=== PATIENT | female | born 1990 | race Caucasian/White ===

== ENCOUNTER 2016-12-11 17:46 | Emergency (ER) | payer OTHER ==
[~2016-12-11 17:46] MED LIST: /GUAIMAX PO; ALBU17IN INH; BIRTH CONTROL PO; CELE10TA PO; IBUP100SUS PO; IBUP200T2 PO; KEPP500T4 PO; ZITH500T PO
[2016-12-11] MEDS ORDERED: DOXYCYCLINE HYCLATE 100 MG TAB As Ordered ONE (20:20)
[2016-12-11] MEDS ORDERED: BENZONATATE 100 MG CAP As Ordered ONE (20:20)
--- NOTE | 2016-12-11 20:29 | EDDOCDS ---
Physician Documentation [facility] Name: Desiree Ram Age: 26 yrs Sex: Female : 1990 Arrival Date: 12/11/2016 Time: 17:46 Bed TR5 Private MD: Other - Complete Info On Cds Disposition: 12/11/16 20:18 Discharged to Home/Self Care. Impression: Acute bronchitis, Acute sinusitis. - Condition is Stable. - Discharge Instructions: Acute Bronchitis, Sinusitis, Adult. - Prescriptions for Doxycycline Hyclate 100 mg Oral Tablet - take 1 tablet by ORAL route every 12 hours; 20 tablet. benzonatate 200 mg Oral Capsule - take 1 capsule by ORAL route 3 times per day As needed; 30 capsule. - Medication Reconciliation, Local Pharmacy Hours form. - Follow up: Private Physician; When: 2 - 3 days; Reason: Recheck today's complaints, Continuance of care. - Problem is new. - Symptoms have improved. - Notes: USE MEDICATION INSTRUCTED, FOLLOW UP WITH YOUR DOCTOR IN 2-3 DAYS, RETURN TO THE ER IF THE SYMPTOMS WORSEN OR BECOME CONCERNING Historical: - Allergies: PENICILLINS (Anaphylaxis); - Home Meds: 1. none - PMHx: none; - PSHx: Tonsillectomy; Laparoscopy; - Social history: Smoking status: Patient states was never smoker of tobacco. No barriers to communication noted, The patient speaks fluent Welsh. - Family history: Not pertinent. - : The pt / caregiver states he / she is not on anticoagulants. Home medication list is obtained from the patient. - Exposure Risk Screening:: None identified. 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 9 in. (175.26 cm); Pain 8/10; 20:25 BP 125 / 75; Pulse 91; Resp 18; Temp 98.4(TE); Pulse Ox 98% on R/A; jo3 17:48 Body Mass Index 29.53 (90.72 kg, 175.26 cm) bnb MDM: 19:08 Strep Screen, Nursing ordered. ck7 19:08 Obtain sample by nasopharyngeal swab ordered. ck7 19:09 -Influenza A&B Rapid Antigen - Nose Ordered. EDMS 19:10 Chest, 2 View (pa\E\lat) Ordered. EDMS 19:16 GATS (NEGATIVE STREP SCREEN) Ordered. EDMS 20:03 -Influenza A&B Rapid Antigen - Nose Reviewed. ck7 20:17 Doxycycline 100 mg PO once ordered. ck7 20:17 Tessalon 200 mg PO once ordered. ck7 Administered Medications: 20:25 Drug: Doxycycline 100 mg [doxycycline hyclate 100 mg tablet (1 tabs)] Route: PO; jo3 20:25 Drug: Tessalon 200 mg Route: PO; jo3 Signatures: Dispatcher [employer] EDMS Malia Villela,RN RN ck1 Phyllis Guan,RN RN jo3 Rachael AnnaRN RN rs3 Franko Estrada, RPA-C RPA-Cck7 MTDD
--- NOTE | 2016-12-11 20:29 | EDDOCDS ---
Nurse's Notes [facility] Name: Desiree Ram Age: 26 yrs Sex: Female : 1990 Arrival Date: 12/11/2016 Time: 17:46 Bed TR5 Private MD: Other - Complete Info On Cds Diagnosis: Acute bronchitis;Acute sinusitis Presentation: 12/11 17:50 Presenting complaint: Patient states: chest congestion, head cold, ear fullness for 5 rs3 days. no relief with OTC cough/cold med. Adult Sepsis Screening: The patient does not have new or worsening altered mentation. Patient's respiratory rate is less than 22. Systolic blood pressure is greater than 100. Patient has a qSOFA score of 0- Negative Sepsis Screen. Suicide/Homicide risk assessment- the patient denies having any suicidal and/or homicidal ideations and does not present with any other emotional, behavioral or mental health complaints. Status: Patient is not a director of medical services or dependent. Transition of care: patient was not received from another setting of care. 17:50 Acuity: NANO Level 4 rs3 17:50 Method Of Arrival: Walkin/Carried/Asstd rs3 Triage Assessment: 17:52 General: Appears in no apparent distress. Pain: Denies pain. HIV screening NA for this rs3 visit Offered previously. Respiratory: Onset: The symptoms/episode began/occurred gradually. 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 none - PMHx: none; - PSHx: Tonsillectomy; Laparoscopy; - Social history: Smoking status: Patient states was never smoker of tobacco. No barriers to communication noted, The patient speaks fluent American. - Family history: Not pertinent. - : The pt / caregiver states he / she is not on anticoagulants. Home medication list is obtained from the patient. - Exposure Risk Screening:: None identified. Screenin:15 Screening information is obtained from the patient. Fall risk: No risks identified. ck1 Assistance ADL's: requires no assistance with activities of daily living. Abuse/DV Screen: The patient / caregiver reports he/she is: not in a situation that causes fear, pain or injury. Nutritional screening: No deficits noted. Advance Directives: Currently, there is no health care proxy. home support is adequate. Assessment: 19:16 General: Appears in no apparent distress, comfortable, Behavior is appropriate for age, ck1 cooperative. Pain: Location: head and chest Pain currently is 5 out of 10 on a pain scale. Cardiovascular: Rhythm is regular. Respiratory: Airway is patent Respiratory effort is unlabored, Breath sounds are clear bilaterally. Derm: Skin is intact, is healthy with good turgor, Skin is pink, warm & dry. 20:25 Reassessment: Patient appears in no apparent distress at this time. Patient states jo3 feeling better. Neurological: Level of Consciousness is awake, alert, Oriented to person, place, time. Respiratory: Airway is patent Respiratory effort is even, unlabored. Vital Signs: 17:48 BP 114 / 75 RA Sitting (auto/lg); Pulse 101; Resp 16; Temp 96.5(O); Pulse Ox 100% on bnb R/A; Weight 90.72 kg; Height 5 ft. 9 in. (175.26 cm); Pain 8/10; 20:25 BP 125 / 75; Pulse 91; Resp 18; Temp 98.4(TE); Pulse Ox 98% on R/A; jo3 17:48 Body Mass Index 29.53 (90.72 kg, 175.26 cm) bnb Vitals: 17:48 Log In Time: December 11, 2016 at 17:48. bnb 19:15 Strep Screen is obtained and tested: Negative, a GATSNEG culture is ordered in [facility] ck1 and sent. ED Course: 17:47 Patient visited by Ruby Arreaga PCA. bnb 17:47 Patient moved to Waiting bnb 17:48 Other - Complete Info On Cds is Private Physician. bnb 17:50 Patient moved to Pre RCE bnb 17:52 Triage Initiated rs3 18:47 Patient moved to Triage 1 ck1 18:50 Patient visited by Francia Spears PCA. jb5 18:56 Franko Estrada RPA-C is PHCP. ck7 18:56 Anam Dias DO is Attending Physician. ck7 18:57 Patient visited by Franko Estrada RPA-C. ck7 19:14 -Influenza A&B Rapid Antigen - Nose Sent. mdr 19:15 Patient moved to TR3 mdr 19:16 The patient / caregiver is instructed regarding the plan of care and ED course. ck1 19:17 GATS (NEGATIVE STREP SCREEN) Sent. ck1 19:21 Patient moved to TR1 ck1 19:32 Patient visited by Malia Villela RN. ck1 20:03 Patient visited by Franko Estrada RPA-C. ck7 20:19 Patient moved to PR / ck1 20:25 No IV's were initiated during this patient's visit. No procedures done that require jo3 assistance. 20:28 Patient moved to TR5 mdr Administered Medications: 20:25 Drug: Doxycycline 100 mg [doxycycline hyclate 100 mg tablet (1 tabs)] Route: PO; jo3 20:25 Drug: Tessalon 200 mg Route: PO; jo3 Order Results: Lab Order: -Influenza A&B Rapid Antigen - Nose; SPEC'M 16 19:13 Test: INFLUENZA A RAPID SCR by ICA; Value: INFLUENZA A RESULTS NEGATIVE; Status: F Test: INFLUENZA A RAPID SCR by ICA; Value: Comments:; Status: F Test: INFLUENZA B RAPID SCR by ICA; Value: INFLUENZA B RESULTS NEGATIVE; Status: F Test Note: ; The Influenza test is a direct rapid immunoassay for the qualitative detection of Influenza viral antigen. Cell culture (Viral Culture) testing should be considered to confirm NEGATIVE results and to assist in detecting other viruses that can provide similar clinical symptoms. Please contact the lab within 24 hours ([phone]) if confirmatory testing is desired. Outcome: 20:18 Discharge ordered by Provider. ck7 20:25 Discharge Assessment: Patient awake, alert and oriented x 3. No cognitive and/or jo3 functional deficits noted. Patient verbalized understanding of disposition instructions. patient administered narcotics - no. The following High Risk Discharge criteria are identified: None. Discharged to home ambulatory. Condition: stable Condition: improved. Discharge instructions given to patient, Instructed on discharge instructions, follow up and referral plans. medication usage, Demonstrated understanding of instructions, medications, Pt was receptive of discharge instructions/ teaching. Prescriptions given X 2. No special radiology studies were completed. Property sent home with patient. 20:28 Patient left the ED. jo3 Signatures: Malia Villela,RN RN ck1 Francia Spears, PRINTING MACHINE OPERATOR PRINTING MACHINE OPERATOR jb5 Phyllis Guan RN RN jo3 Rachael Anna RN RN rs3 Franko Estrada, RPA-C RPA-Cck7 Gurwinder Wooten, PRINTING MACHINE OPERATOR PRINTING MACHINE OPERATOR mdr Ruby Arreaga, PRINTING MACHINE OPERATOR PRINTING MACHINE OPERATOR bnb MTDD
--- NOTE | 2016-12-12 09:58 | REP ---
Clinical: Acute cough . Comparison: 10/08/2014 . Technique: PA and lateral. Findings: The mediastinum and cardiac silhouette are normal. The lung barrett are clear and without acute consolidation, effusion, or pneumothorax. The skeletal structures are intact and normal. Impression: 1. No acute cardiopulmonary process. Signed by Benja Isabel MD 12/12/2016 09:50 A
--- NOTE | 2016-12-13 21:29 | EDDOCDS ---
Nurse's Notes [facility] Name: Desiree Ram Age: 26 yrs Sex: Female : 1990 Arrival Date: 12/11/2016 Time: 17:46 Bed TR5 Private MD: Other - Complete Info On Cds Diagnosis: Acute bronchitis;Acute sinusitis Presentation: 12/11 17:50 Presenting complaint: Patient states: chest congestion, head cold, ear fullness for 5 rs3 days. no relief with OTC cough/cold med. Adult Sepsis Screening: The patient does not have new or worsening altered mentation. Patient's respiratory rate is less than 22. Systolic blood pressure is greater than 100. Patient has a qSOFA score of 0- Negative Sepsis Screen. Suicide/Homicide risk assessment- the patient denies having any suicidal and/or homicidal ideations and does not present with any other emotional, behavioral or mental health complaints. Status: Patient is not a social services manager or dependent. Transition of care: patient was not received from another setting of care. 17:50 Acuity: NANO Level 4 rs3 17:50 Method Of Arrival: Walkin/Carried/Asstd rs3 Triage Assessment: 17:52 General: Appears in no apparent distress. Pain: Denies pain. HIV screening NA for this rs3 visit Offered previously. Respiratory: Onset: The symptoms/episode began/occurred gradually. 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 none - PMHx: none; - PSHx: Tonsillectomy; Laparoscopy; - Social history: Smoking status: Patient states was never smoker of tobacco. No barriers to communication noted, The patient speaks fluent Estonian. - Family history: Not pertinent. - : The pt / caregiver states he / she is not on anticoagulants. Home medication list is obtained from the patient. - Exposure Risk Screening:: None identified. Screenin:15 Screening information is obtained from the patient. Fall risk: No risks identified. ck1 Assistance ADL's: requires no assistance with activities of daily living. Abuse/DV Screen: The patient / caregiver reports he/she is: not in a situation that causes fear, pain or injury. Nutritional screening: No deficits noted. Advance Directives: Currently, there is no health care proxy. home support is adequate. Assessment: 19:16 General: Appears in no apparent distress, comfortable, Behavior is appropriate for age, ck1 cooperative. Pain: Location: head and chest Pain currently is 5 out of 10 on a pain scale. Cardiovascular: Rhythm is regular. Respiratory: Airway is patent Respiratory effort is unlabored, Breath sounds are clear bilaterally. Derm: Skin is intact, is healthy with good turgor, Skin is pink, warm & dry. 20:25 Reassessment: Patient appears in no apparent distress at this time. Patient states jo3 feeling better. Neurological: Level of Consciousness is awake, alert, Oriented to person, place, time. Respiratory: Airway is patent Respiratory effort is even, unlabored. Vital Signs: 17:48 BP 114 / 75 RA Sitting (auto/lg); Pulse 101; Resp 16; Temp 96.5(O); Pulse Ox 100% on bnb R/A; Weight 90.72 kg; Height 5 ft. 9 in. (175.26 cm); Pain 8/10; 20:25 BP 125 / 75; Pulse 91; Resp 18; Temp 98.4(TE); Pulse Ox 98% on R/A; jo3 17:48 Body Mass Index 29.53 (90.72 kg, 175.26 cm) bnb Vitals: 17:48 Log In Time: December 11, 2016 at 17:48. bnb 19:15 Strep Screen is obtained and tested: Negative, a GATSNEG culture is ordered in [facility] ck1 and sent. ED Course: 17:47 Patient visited by Ruby Arreaga PCA. bnb 17:47 Patient moved to Waiting bnb 17:48 Other - Complete Info On Cds is Private Physician. bnb 17:50 Patient moved to Pre RCE bnb 17:52 Triage Initiated rs3 18:47 Patient moved to Triage 1 ck1 18:50 Patient visited by Francia Spears PCA. jb5 18:56 Franko Estrada RPA-C is PHCP. ck7 18:56 Anam Dias DO is Attending Physician. ck7 18:57 Patient visited by Franko Estrada RPA-C. ck7 19:14 -Influenza A&B Rapid Antigen - Nose Sent. mdr 19:15 Patient moved to TR3 mdr 19:16 The patient / caregiver is instructed regarding the plan of care and ED course. ck 19:17 GATS (NEGATIVE STREP SCREEN) Sent. ck1 19:21 Patient moved to TR1 ck1 19:32 Patient visited by Malia Villela RN. ck1 20:03 Patient visited by Franko Estrada RPA-C. ck7 20:19 Patient moved to PR ck1 20:25 No IV's were initiated during this patient's visit. No procedures done that require jo3 assistance. 20:28 [facility] 10[facility] T-Sheet-- Draft Copy was scanned into [employer] and attached to record. 10:27 Chest, 2 View (pa\E\lat) Returned. EDMS Administered Medications: 12/11 20:25 Drug: Doxycycline 100 mg [doxycycline hyclate 100 mg tablet (1 tabs)] Route: PO; jo3 20:25 Drug: Tessalon 200 mg Route: PO; jo3 Order Results: Lab Order: -Influenza A&B Rapid Antigen - Nose; SPEC'M 12/11/16 19:13 Test: INFLUENZA A RAPID SCR by ICA; Value: INFLUENZA A RESULTS NEGATIVE; Status: F Test: INFLUENZA A RAPID SCR by ICA; Value: Comments:; Status: F Test: INFLUENZA B RAPID SCR by ICA; Value: INFLUENZA B RESULTS NEGATIVE; Status: F Test Note: ; The Influenza test is a direct rapid immunoassay for the qualitative detection of Influenza viral antigen. Cell culture (Viral Culture) testing should be considered to confirm NEGATIVE results and to assist in detecting other viruses that can provide similar clinical symptoms. Please contact the lab within 24 hours ([phone]) if confirmatory testing is desired. Lab Order: GATS (NEGATIVE STREP SCREEN); SPEC'M 12/11/16 19:13 Test: GATS CULTURE (NEG STREP SCR); Value: GATS RESULT NEGATIVE FOR STREP PYOGENES (GROUP A); Status: F Test: GATS CULTURE (NEG STREP SCR); Value: <EXTERNAL COMMENT eCWMed> FULL REPORT IN LAB NOTES (eCW and Medent).; Status: F Radiology Order: Chest, 2 View (pa\E\lat) Test: Chest, 2 View (pa\E\lat) REASON FOR EXAMINATION: Cough; Clinical: Acute cough .; ; Comparison: 10/08/2014 .; ; Technique: PA and lateral.; ; Findings:; The mediastinum and cardiac silhouette are normal. The lung barrett are clear and; without acute consolidation, effusion, or pneumothorax. The skeletal structures; are intact and normal.; ; Impression:; 1. No acute cardiopulmonary process.; ; ; Signed by; Benja Isabel MD 12/12/2016 09:50 A; Outcome: 20:18 Discharge ordered by Provider. ck7 20:25 Discharge Assessment: Patient awake, alert and oriented x 3. No cognitive and/or jo3 functional deficits noted. Patient verbalized understanding of disposition instructions. patient administered narcotics - no. The following High Risk Discharge criteria are identified: None. Discharged to home ambulatory. Condition: stable Condition: improved. Discharge instructions given to patient, Instructed on discharge instructions, follow up and referral plans. medication usage, Demonstrated understanding of instructions, medications, Pt was receptive of discharge instructions/ teaching. Prescriptions given X 2. No special radiology studies were completed. Property sent home with patient. 20:28 Patient left the ED. jo3 Signatures: Dispatcher [employer] EDMS Bina Hess, Reg Reg gb Malia Villela,RN RN ck1 Francia Spears, STAKING PRESS OPERATOR STAKING PRESS OPERATOR jb5 Phyllis Guan,RN RN jo3 Rachael Anna,RN RN rs3 Franko Estrada, RPA-C RPA-Cck7 Gurwinder Wooten, STAKING PRESS OPERATOR STAKING PRESS OPERATOR mdr Ruby Arreaga, STAKING PRESS OPERATOR STAKING PRESS OPERATOR bnb Chart Complete MTDD
--- NOTE | 2016-12-13 21:29 | EDDOCDS ---
Physician Documentation [facility] Name: Desiree Ram Age: 26 yrs Sex: Female : 1990 Arrival Date: 12/11/2016 Time: 17:46 Bed TR5 Private MD: Other - Complete Info On Cds Disposition: 12/11/16 20:18 Discharged to Home/Self Care. Impression: Acute bronchitis, Acute sinusitis. - Condition is Stable. - Discharge Instructions: Acute Bronchitis, Sinusitis, Adult. - Prescriptions for Doxycycline Hyclate 100 mg Oral Tablet - take 1 tablet by ORAL route every 12 hours; 20 tablet. benzonatate 200 mg Oral Capsule - take 1 capsule by ORAL route 3 times per day As needed; 30 capsule. - Medication Reconciliation, Local Pharmacy Hours form. - Follow up: Private Physician; When: 2 - 3 days; Reason: Recheck today's complaints, Continuance of care. - Problem is new. - Symptoms have improved. - Notes: USE MEDICATION INSTRUCTED, FOLLOW UP WITH YOUR DOCTOR IN 2-3 DAYS, RETURN TO THE ER IF THE SYMPTOMS WORSEN OR BECOME CONCERNING Historical: - Allergies: PENICILLINS (Anaphylaxis); - Home Meds: 1. none - PMHx: none; - PSHx: Tonsillectomy; Laparoscopy; - Social history: Smoking status: Patient states was never smoker of tobacco. No barriers to communication noted, The patient speaks fluent Polish. - Family history: Not pertinent. - : The pt / caregiver states he / she is not on anticoagulants. Home medication list is obtained from the patient. - Exposure Risk Screening:: None identified. 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 9 in. (175.26 cm); Pain 8/10; 20:25 BP 125 / 75; Pulse 91; Resp 18; Temp 98.4(TE); Pulse Ox 98% on R/A; jo3 17:48 Body Mass Index 29.53 (90.72 kg, 175.26 cm) bnb MDM: 19:08 Strep Screen, Nursing ordered. ck7 19:08 Obtain sample by nasopharyngeal swab ordered. ck7 19:09 -Influenza A&B Rapid Antigen - Nose Ordered. EDMS 19:10 Chest, 2 View (pa\E\lat) Ordered. EDMS 19:16 GATS (NEGATIVE STREP SCREEN) Ordered. EDMS 20:03 -Influenza A&B Rapid Antigen - Nose Reviewed. ck7 20:17 Doxycycline 100 mg PO once ordered. ck7 20:17 Tessalon 200 mg PO once ordered. ck7 12/12 10:19 T-Sheet-- Draft Copy was scanned into [employer] and attached to record. gb Administered Medications: 12/11 20:25 Drug: Doxycycline 100 mg [doxycycline hyclate 100 mg tablet (1 tabs)] Route: PO; jo3 20:25 Drug: Tessalon 200 mg Route: PO; jo3 Signatures: Dispatcher [employer] EDMS Bina Hess, Reg Reg gb Malia Villela,RN RN ck1 Phyllis GuanRN RN jo3 Rachael Anna,RN RN rs3 Franko Estrada, RPA-C RPA-Cck7 The chart was reviewed and I authenticate all verbal orders and agree with the evaluation and treatment provided.Attachments: 12/12 10:19 T-Sheet-- Draft Copy gb Chart Complete MTDD
--- NOTE | 2016-12-13 21:29 | EDDOCDS ---
Physician Documentation [facility] Name: Desiree Ram Age: 26 yrs Sex: Female : 1990 Arrival Date: 12/11/2016 Time: 17:46 Bed TR5 Private MD: Other - Complete Info On Cds Disposition: 12/11/16 20:18 Discharged to Home/Self Care. Impression: Acute bronchitis, Acute sinusitis. - Condition is Stable. - Discharge Instructions: Acute Bronchitis, Sinusitis, Adult. - Prescriptions for Doxycycline Hyclate 100 mg Oral Tablet - take 1 tablet by ORAL route every 12 hours; 20 tablet. benzonatate 200 mg Oral Capsule - take 1 capsule by ORAL route 3 times per day As needed; 30 capsule. - Medication Reconciliation, Local Pharmacy Hours form. - Follow up: Private Physician; When: 2 - 3 days; Reason: Recheck today's complaints, Continuance of care. - Problem is new. - Symptoms have improved. - Notes: USE MEDICATION INSTRUCTED, FOLLOW UP WITH YOUR DOCTOR IN 2-3 DAYS, RETURN TO THE ER IF THE SYMPTOMS WORSEN OR BECOME CONCERNING Historical: - Allergies: PENICILLINS (Anaphylaxis); - Home Meds: 1. none - PMHx: none; - PSHx: Tonsillectomy; Laparoscopy; - Social history: Smoking status: Patient states was never smoker of tobacco. No barriers to communication noted, The patient speaks fluent Macedonian. - Family history: Not pertinent. - : The pt / caregiver states he / she is not on anticoagulants. Home medication list is obtained from the patient. - Exposure Risk Screening:: None identified. 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 9 in. (175.26 cm); Pain 8/10; 20:25 BP 125 / 75; Pulse 91; Resp 18; Temp 98.4(TE); Pulse Ox 98% on R/A; jo3 17:48 Body Mass Index 29.53 (90.72 kg, 175.26 cm) bnb MDM: 19:08 Strep Screen, Nursing ordered. ck7 19:08 Obtain sample by nasopharyngeal swab ordered. ck7 19:09 -Influenza A&B Rapid Antigen - Nose Ordered. EDMS 19:10 Chest, 2 View (pa\E\lat) Ordered. EDMS 19:16 GATS (NEGATIVE STREP SCREEN) Ordered. EDMS 20:03 -Influenza A&B Rapid Antigen - Nose Reviewed. ck7 20:17 Doxycycline 100 mg PO once ordered. ck7 20:17 Tessalon 200 mg PO once ordered. ck7 12/12 10:19 T-Sheet-- Draft Copy was scanned into [employer] and attached to record. gb Administered Medications: 12/11 20:25 Drug: Doxycycline 100 mg [doxycycline hyclate 100 mg tablet (1 tabs)] Route: PO; jo3 20:25 Drug: Tessalon 200 mg Route: PO; jo3 Signatures: Dispatcher [employer] EDMS Bina Hess, Reg Reg gb Malia Villela,RN RN ck1 Phyllis GuanRN RN jo3 Rachael Anna,RN RN rs3 Franko Estrada, RPA-C RPA-Cck7 The chart was reviewed and I authenticate all verbal orders and agree with the evaluation and treatment provided.Attachments: 12/12 10:19 T-Sheet-- Draft Copy gb Chart Complete MTDD
== END 2016-12-11 20:28 | disposition home or self-care (01) ==
LOC: M ED 17:46
DX: J01.90 Acute sinusitis, unspecified (principal); J20.9 Acute bronchitis, unspecified; Z88.0 Allergy status to penicillin

== ENCOUNTER → 2017-04-09 | Outpatient (CLI) | payer OTHER ==
[2017-04-09 17:30] LABS: BASO % 0.5 % (0.0-1.0); EOS # 0.1 K/mm3 (0.0-0.50); EOS % 2.2 % (0.0-3.0); LARGE UNSTAINED CELL # 0.1 K/mm3 (0.0-0.4); LARGE UNSTAINED CELL % 1.6 % (0.0-4.0); LYMPH # 0.9 K/mm3 (1.5-6.5); LYMPH % 23.8 % (24.0-44.0); MEAN CORPUSCULAR HEMOGLOBIN 31.9 pg (27.0-33.0); MEAN CORPUSCULAR HGB CONC 33.8 g/dl (32.0-36.5); MEAN CORPUSCULAR VOLUME 94.6 fl (80.0-96.0); MONO # 0.2 K/mm3 (0.0-0.8); MONO % 5.8 % (0.0-5.0); NEUTROPHILS # 2.6 K/mm3 (1.8-7.7); PLATELET COUNT, AUTOMATED 156 k/mm3 (150-450); RED CELL DISTRIBUTION WIDTH 12.3 % (11.5-14.5); WHITE BLOOD COUNT 3.9 K/mm3 (4.0-10.0)
[2017-04-09 17:46] LABS: ALBUMIN 4.1 GM/DL (3.2-5.2); ALBUMIN/GLOBULIN RATIO 1.46 (1.00-1.93); ALKALINE PHOSPHATASE 89 U/L (45-117); ALT/SGPT 35 U/L (12-78); ANION GAP 4 MEQ/L (8-16); AST/SGOT 20 U/L (15-37); BILIRUBIN,TOTAL 0.5 MG/DL (0.2-1.0); BLOOD UREA NITROGEN 13 MG/DL (7-18); CALCIUM LEVEL 8.6 MG/DL (8.5-10.1); CARBON DIOXIDE LEVEL 30 MEQ/L (21-32); CHLORIDE LEVEL 103 MEQ/L (98-107); CHOLESTEROL LEVEL 153 MG/DL (<200); CREATININE FOR GFR 0.69 MG/DL (0.55-1.02); FREE T4 0.97 NG/DL (0.76-1.46); GLOMERULAR FILTRATION RATE > 60.0 (>60); GLUCOSE, FASTING 86 MG/DL (70-105); POTASSIUM SERUM 4.2 MEQ/L (3.5-5.1); SODIUM LEVEL 137 MEQ/L (136-145); TOTAL PROTEIN 6.9 GM/DL (6.4-8.2); TRIGLYCERIDES LEVEL 66 MG/DL (<150)
== END ==
LOC: M WUC 11:02
PROVIDERS: ATTEND Physician Assistant
DX: Z00.00 Encounter for general adult medical examination without abnormal findings (principal)

== ENCOUNTER 2017-05-01 19:11 | Emergency (ER) | payer OTHER ==
[~2017-05-01] VITALS: Ht 175.3 cm; Wt 100.0 kg
[2017-05-01 19:35] VITALS: BP 103/55
[2017-05-01] MEDS ORDERED: levETIRAcetam 250MG TABLET (KEPPRA) PO ONE (20:00)
[2017-05-01] MEDS ORDERED: MORPHINE 2 MG/ML 1ML SYRINGE IV ONE (20:15)
[2017-05-01 20:21] LABS: ANION GAP 7 MEQ/L (8-16); BLOOD UREA NITROGEN 15 MG/DL (7-18); CALCIUM LEVEL 8.7 MG/DL (8.5-10.1); CARBON DIOXIDE LEVEL 26 MEQ/L (21-32); CHLORIDE LEVEL 109 MEQ/L (98-107); CREATININE FOR GFR 0.87 MG/DL (0.55-1.02); GLOMERULAR FILTRATION RATE > 60.0 (>60); GLUCOSE, FASTING 103 MG/DL (70-105); POTASSIUM SERUM 3.6 MEQ/L (3.5-5.1); SODIUM LEVEL 142 MEQ/L (136-145)
--- NOTE | 2017-05-01 20:25 | REP ---
Clinical: Trauma . Comparison: 04/30/2017 . Findings: The ventricles, sulci, and cisterns are normal in position and appearance. Cheek-white differentiation is maintained. No acute intracranial hemorrhage, mass/mass effect, pathology or trauma/injury. No evidence for acute infarction. No extra-axial fluid collection. Calvarium is intact. Paranasal sinuses and mastoid air cells are clear. Impression: Normal noncontrast head CT. No evidence for acute intracranial pathology or trauma/injury. Signed by Benja Isabel MD 05/01/2017 08:15 P
[2017-05-01 22:48] LABS: METHADONE URINE NEGATIVE (NEGATIVE)
[2017-05-01] MEDS ORDERED: KEPP1TAB PO (23:03)
== END 2017-05-01 23:15 | disposition home or self-care (01) ==
LOC: EDBD 19:11 → M ED 19:11
DX: G40.909 Epilepsy, unspecified, not intractable, without status epilepticus (principal); Z88.0 Allergy status to penicillin

== ENCOUNTER 2018-12-25 20:20 | Emergency (ER) | payer OTHER, SELFPAY ==
[~2018-12-25] VITALS: Ht 175.3 cm; Wt 118.2 kg
[~2018-12-25 20:20] MED LIST changes: +KEPP1TAB PO
[2018-12-25] MEDS ORDERED: TETRACAINE 0.5% OPHTH SOLN 4ML OS ONE (20:45)
[2018-12-25] MEDS ORDERED: FLUORESCEIN OPHTH 1 MG STRIP OS ONE (21:45)
[2018-12-25] MEDS ORDERED: FLUORESCEIN OPHTH 1 MG STRIP As Ordered ONE (21:45)
[2018-12-25] MEDS ORDERED: IBUPROFEN 800 MG TAB PO ONE (22:00)
[2018-12-25] MEDS ORDERED: CYCLOPENTOLATE 1% OPHTH SOLN 2 ML BTL OS ONE (22:00)
[2018-12-25] MEDS ORDERED: ERYTOIN8 OP (22:49)
[2018-12-25 22:57] VITALS: BP 141/80
[2018-12-25] MEDS ORDERED: ERYTHROMYCIN OPHTH OINT OS ONE (23:00)
== END 2018-12-25 23:18 | disposition home or self-care (01) ==
LOC: M ED 20:20
DX: S05.02XA Injury of conjunctiva and corneal abrasion without foreign body, left eye, initial encounter (principal); Z97.3 Presence of spectacles and contact lenses; X58.XXXA Exposure to other specified factors, initial encounter; Y92.098 Other place in other non-institutional residence as the place of occurrence of the external cause; Z88.0 Allergy status to penicillin

== ENCOUNTER 2019-01-03 12:47 | Emergency (ER) | payer SELFPAY ==
[~2019-01-03] VITALS: Ht 175.3 cm; Wt 127.3 kg
[~2019-01-03 12:47] MED LIST changes: +ERYTOIN8 OP
[2019-01-03 13:48] LABS: BASO % 0.1 % (0.0-1.0); EOS % 0.3 % (0.0-3.0); HEMATOCRIT 42.4 % (36.0-47.0); HEMOGLOBIN 14.7 g/dl (12.0-15.5); LYMPH # 0.4 10^3/uL (1.5-6.5); LYMPH % 3.9 % (24.0-44.0); MEAN CORPUSCULAR HEMOGLOBIN 31.7 pg (27.0-33.0); MEAN CORPUSCULAR HGB CONC 34.7 g/dl (32.0-36.5); MEAN CORPUSCULAR VOLUME 91.4 fl (80.0-96.0); MONO # 0.3 10^3/uL (0.0-0.8); MONO % 3.2 % (0.0-5.0); NEUTROPHILS # 9.4 10^3/uL (1.8-7.7); NEUTROPHILS % 92.1 % (36.0-66.0); PLATELET COUNT, AUTOMATED 188 10^3/uL (150-450); RED BLOOD COUNT 4.64 10^6/uL (4.00-5.40); WHITE BLOOD COUNT 10.2 10^3/uL (4.0-10.0)
[2019-01-03 14:13] LABS: BLOOD UREA NITROGEN 17 MG/DL (7-18); CARBON DIOXIDE LEVEL 21 MEQ/L (21-32); CHLORIDE LEVEL 109 MEQ/L (98-107); CREATININE FOR GFR 0.82 MG/DL (0.55-1.30); GLOMERULAR FILTRATION RATE > 60.0 (>60); GLUCOSE, FASTING 104 MG/DL (70-100); POTASSIUM SERUM 4.1 MEQ/L (3.5-5.1); SODIUM LEVEL 140 MEQ/L (136-145)
[2019-01-03] MEDS ORDERED: ONDANSETRON 4MG/2ML VIAL (J2405) IV ONE (16:15)
[2019-01-03] MEDS ORDERED: DICYCLOMINE INJ 20MG/2ML (J0500) IM ONE (16:15)
[2019-01-03] MEDS ORDERED: NS 1,000 ML IV ONE (16:15)
[2019-01-03] MEDS ORDERED: DICY20TA PO (18:58)
[2019-01-03] MEDS ORDERED: ONDA4TAB6 PO (18:58)
[2019-01-03 19:23] VITALS: BP 127/62
== END 2019-01-03 20:19 | disposition home or self-care (01) ==
LOC: M ED 12:47
DX: K52.9 Noninfective gastroenteritis and colitis, unspecified (principal); N80.9 Endometriosis, unspecified; Z88.0 Allergy status to penicillin; Z86.69 Personal history of other diseases of the nervous system and sense organs
CPT/HCPCS: 80048; 81001; 85025; 87086; 96372; 96374; 99284; J0500; J2405

== ENCOUNTER 2019-02-09 00:06 | Emergency (ER) | payer SELFPAY ==
[~2019-02-09] VITALS: Ht 175.3 cm; Wt 122.0 kg
[~2019-02-09 00:06] MED LIST changes: +DICY20TA PO; +IBUP100S44 PO; -IBUP100SUS PO; +ONDA4TAB6 PO
[2019-02-09 01:48] LABS: ABG BASE EXCESS -1.4 (-2.0-2.0); ABG HCO3 20.6 MEQ/L (22.0-26.0); ABG O2 SATURATION 98.8 % (95.0-99.0); ABG PARTIAL PRESSURE CO2 26.9 mmHg (35.0-45.0); ABG PARTIAL PRESSURE O2 140.8 mmHg (75.0-100.0); ABG STANDARD HCO3 23.3 MEQ/L (22.0-26.0); ABG TOTAL CO2 21.4 MEQ/L (22.0-29.0); ABG pH (ARTERIAL) 7.501 UNITS (7.350-7.450)
[2019-02-09] MEDS ORDERED: PRED20TA PO (02:44)
[2019-02-09] MEDS ORDERED: DEXTROMETHORPHAN 5 ML SYRUP (ROBITUSSIN PEDIATRIC COUGH) PO ONE (02:45)
[2019-02-09 03:07] VITALS: BP 108/58
--- NOTE | 2019-02-09 10:27 | REP ---
Chest x-ray: Two views. History: Shortness of breath. Comparison study: August 17, 2017. Findings: Lungs are well inflated and clear. Pleural angles are sharp. Heart size is normal. Pulmonary vasculature is not increased. No significant bony abnormalities seen. Impression: Negative chest x-ray. Electronically Signed by Immanuel York MD 02/09/2019 10:19 A
== END 2019-02-09 03:09 | disposition home or self-care (01) ==
LOC: M ED 00:06
DX: J20.9 Acute bronchitis, unspecified (principal); Z88.0 Allergy status to penicillin

== ENCOUNTER → 2019-03-11 | Outpatient (REF) | payer OTHER, SELFPAY ==
[~2019-03-11] MED LIST changes: +PRED20TA PO
[2019-03-11 16:25] LABS: BASO % 0.4 % (0.0-1.0); EOS # 0.2 10^3/uL (0.0-0.50); HEMATOCRIT 38.2 % (36.0-47.0); HEMOGLOBIN 12.9 g/dl (12.0-15.5); LYMPH # 1.4 10^3/uL (1.5-6.5); LYMPH % 27.9 % (24.0-44.0); MEAN CORPUSCULAR HEMOGLOBIN 31.4 pg (27.0-33.0); MEAN CORPUSCULAR HGB CONC 33.8 g/dl (32.0-36.5); MEAN CORPUSCULAR VOLUME 92.9 fl (80.0-96.0); MONO # 0.5 10^3/uL (0.0-0.8); MONO % 10.4 % (0.0-5.0); NEUTROPHILS # 2.9 10^3/uL (1.8-7.7); NEUTROPHILS % 58.1 % (36.0-66.0); PLATELET COUNT, AUTOMATED 206 10^3/uL (150-450); RED BLOOD COUNT 4.11 10^6/uL (4.00-5.40)
[2019-03-11 16:57] LABS: BLOOD UREA NITROGEN 12 MG/DL (7-18); CALCIUM LEVEL 8.8 MG/DL (8.5-10.1); CARBON DIOXIDE LEVEL 26 MEQ/L (21-32); CHLORIDE LEVEL 104 MEQ/L (98-107); CREATININE FOR GFR 0.71 MG/DL (0.55-1.30); FREE T4 0.89 NG/DL (0.76-1.46); GLOMERULAR FILTRATION RATE > 60.0 (>60); GLUCOSE, FASTING 84 MG/DL (70-100); POTASSIUM SERUM 3.9 MEQ/L (3.5-5.1); SODIUM LEVEL 138 MEQ/L (136-145)
== END ==
LOC: M SFHCLERA 13:58
PROVIDERS: ATTEND Nurse Practitioner Family
DX: Z00.00 Encounter for general adult medical examination without abnormal findings (principal); R63.5 Abnormal weight gain

== ENCOUNTER → 2019-05-31 | Outpatient (REF) | payer OTHER | LOC: M SFHCLERA 08:38 | PROVIDERS: ATTEND Nurse Practitioner Family | DX: E55.9 Vitamin D deficiency, unspecified (principal) ==

== ENCOUNTER → 2019-06-03 | Outpatient (REF) | payer OTHER ==
[2019-06-03 17:50] LABS: APPEARANCE, URINE HAZY (CLEAR); BACTERIA, URINE AUTO 2+ (NEGATIVE); BILIRUBIN, URINE AUTO NEGATIVE (NEGATIVE); BLOOD, URINE BLOOD 1+ (NEGATIVE); COLOR, URINE YELLOW (YELLOW); GLUCOSE, URINE (UA) AUTO NEGATIVE (NEGATIVE); KETONE, URINE AUTO NEGATIVE (NEGATIVE); LEUKOCYTE ESTERASE, URINE AUTO 3+ (NEGATIVE); MUCUS, URINE SMALL (NEGATIVE); NITRITE, URINE AUTO POSITIVE (NEGATIVE); PROTEIN, URINE AUTO NEGATIVE (NEGATIVE); RBC, URINE AUTO 3 /HPF (0-3); SQUAMOUS EPITHELIAL CELL UR AU 3 /HPF (0-6); UROBILINOGEN, URINE AUTO 0.2 mg/dL (0.0-2.0); WBC, URINE AUTO 169 /HPF (0-3)
[2019-06-03 18:08] LABS: HIV 1&2 SCREEN CENTAUR NEGATIVE (NEGATIVE)
[2019-06-03 21:52] LABS: CHLAMYDIA DNA AMPLIFICATION NEGATIVE (NEGATIVE); GC DNA AMPLIFICATION NEGATIVE (NEGATIVE)
== END ==
LOC: M SFHCLERA 14:35
PROVIDERS: ATTEND Nurse Practitioner Family
DX: Z11.3 Encounter for screening for infections with a predominantly sexual mode of transmission (principal); R30.0 Dysuria

== ENCOUNTER 2019-06-24 15:34 | Emergency (ER) | payer OTHER ==
[~2019-06-24] VITALS: Ht 175.3 cm; Wt 127.3 kg
[2019-06-24 15:35] VITALS: BP 127/60
[2019-06-24] MEDS ORDERED: BACL10TA2 (15:49)
[2019-06-24] MEDS ORDERED: ONDANSETRON 4 MG ORAL DISINTEGRATING TAB (Q0162 PER 1MG) PO ONE ×2 (16:15→17:15)
[2019-06-24] MEDS ORDERED: MORPHINE 10 MG/ML 1ML VIAL (J2270) IM ONE (16:15)
--- NOTE | 2019-06-24 16:49 | REP ---
Clinical: Pain. Point tenderness. Technique: Axial noncontrast images through the thoracic spine with coronal and sagittal re-formations. Findings: Thoracic vertebral bodies are intact and demonstrate normal contour without evidence for acute fracture / compression injury or subluxation. Alignment and kyphosis maintained. Disc spaces are within normal limits. Neural foramen are patent. Posterior elements and spinous processes are intact. Spinal canal is patent and without evidence for stenosis. Paravertebral soft tissues are within normal limits. Impression: Normal noncontrast CT of the thoracic spine. Electronically Signed by Benja Isabel MD 06/24/2019 04:40 P
--- NOTE | 2019-06-24 16:58 | REP ---
CT of the lumbar spine without contrast Indication: Point tenderness, pain with banding and standing. Comparison: CT lumbar spine of 01/22/2015. Technique: Axial CT of the lumbar spine was performed without contrast. Bone reformatted images were provided within the axial, coronal and sagittal planes. Findings: There is straightening of lumbar lordosis which could be positional or related to muscle spasm. There is mild levo curvature of the lumbar spine. There is no acute fracture or subluxation of the lumbar spine. There are small disc bulges at L3-L4 and L4-L5. There is disc osteophyte complex formation at L5 S1 with probable neural foraminal narrowing. CT appearance of the spinal canal is otherwise unremarkable. The paraspinal soft tissues are within normal limits. The sacroiliac joints are intact. Impression: No acute fracture or subluxation. Mild lumbar spondylosis, most notably at L5-S1 with probable neural foraminal narrowing. However, CT evaluation of the spinal canal and neural foramina is limited. Electronically Signed by Uche Joseph MD 06/24/2019 04:49 P
[2019-06-24] MEDS ORDERED: diazePAM 5 MG TAB PO ONE (17:15)
[2019-06-24] MEDS ORDERED: KETOROLAC 60 MG/2 ML VIAL (J1885) IM ONE (17:15)
[2019-06-24] MEDS ORDERED: KETO10TAB PO (18:20)
[2019-06-24] MEDS ORDERED: VALI5TAB PO (18:20)
[2019-06-24] MEDS ORDERED: ONDA4TAB6 PO (18:24)
[2019-06-24] MEDS ORDERED: METOCLOPRAMIDE 10 MG TAB PO ONE (18:30)
== END 2019-06-24 18:37 | disposition home or self-care (01) ==
LOC: M ED 15:34
DX: S39.012A Strain of muscle, fascia and tendon of lower back, initial encounter (principal); X58.XXXA Exposure to other specified factors, initial encounter; Y92.89 Other specified places as the place of occurrence of the external cause; Y93.89 Activity, other specified; Y99.0 Civilian activity done for income or pay; M47.816 Spondylosis without myelopathy or radiculopathy, lumbar region; G89.29 Other chronic pain; M54.9 Dorsalgia, unspecified; R56.9 Unspecified convulsions; Z79.899 Other long term (current) drug therapy; Z88.0 Allergy status to penicillin
CPT/HCPCS: 72128; 72131; 96372; 99283; J1885; J2270; Q0162

== ENCOUNTER 2019-06-25 12:06 | Emergency (ER) | payer OTHER ==
[~2019-06-25] VITALS: Ht 175.3 cm; Wt 127.3 kg
[~2019-06-25 12:06] MED LIST changes: +BACL10TA2; +KETO10TAB PO; +VALI5TAB PO
[2019-06-25] MEDS ORDERED: ONDANSETRON 4 MG ORAL DISINTEGRATING TAB (Q0162 PER 1MG) PO ONE (13:45)
[2019-06-25] MEDS ORDERED: KETOROLAC 60 MG/2 ML VIAL (J1885) IM ONE (14:15)
[2019-06-25 15:41] VITALS: BP 113/64
== END 2019-06-25 15:42 | disposition home or self-care (01) ==
LOC: M ED 12:06
DX: M54.9 Dorsalgia, unspecified (principal); G89.29 Other chronic pain; Z88.0 Allergy status to penicillin; Z79.899 Other long term (current) drug therapy
CPT/HCPCS: 96372; 99283; J1885; Q0162

== ENCOUNTER → 2019-07-09 | Outpatient (CLI) | payer OTHER ==
--- NOTE | 2019-07-09 11:21 | REPVR ---
EXAM: MR Lumbar Spine Without Contrast. EXAM DATE/TIME: 07/09/2019 10:38 AM CLINICAL HISTORY: 29 years old, female; Low back pain; Additional info: Abn CT of spine TECHNIQUE: Imaging protocol: Multiplanar magnetic resonance images of the lumbar spine without intravenous contrast. COMPARISON: CT Spine, lumbar w/o contrast 06/24/2019 4:29 PM FINDINGS: Vertebrae: Unremarkable. Spinal cord: Normal signal. No cord compression. L1-L2: No significant disc disease. No significant spinal stenosis. L2-L3: No significant disc disease. No significant spinal stenosis. L3-L4: No significant disc disease. No significant spinal stenosis. L4-L5: There is mild disc bulging. There is mild bilateral neuroforaminal narrowing. There is facet arthropathy and ligamentum flavum hypertrophy. There is mild spinal canal stenosis. L5-S1: There is disc space narrowing and desiccation. There are moderate degenerative end plate changes at this level. There is a moderate disc bulge with a moderate superimposed central disc herniation abuts both descending S1 nerve roots. There is mild spinal canal stenosis. There is facet arthropathy and ligamentum flavum hypertrophy. Soft tissues: Unremarkable. IMPRESSION: Moderate central disc herniation at L5/S1 that abuts both descending S1 nerve roots. Please see details above. Electronically signed by: Enrique García On 07/09/2019 11:20:50 AM
== END ==
LOC: M RAD 09:47
PROVIDERS: ATTEND Nurse Practitioner Family
DX: M51.37 Other intervertebral disc degeneration, lumbosacral region (principal)

== ENCOUNTER → 2019-08-12 | Outpatient (REF) | payer OTHER ==
[2019-08-12 14:13] LABS: PLATELET COUNT, AUTOMATED 185 10^3/uL (150-450)
[2019-08-12 14:25] LABS: INR 1.02; PARTIAL THROMBOPLASTIN TIME 29.6 SECONDS (25.0-38.4); PROTHROMBIN TIME 13.2 SECONDS (11.8-14.0)
== END ==
LOC: M LAB REF 14:02
PROVIDERS: ATTEND Physical Medicine & Rehabilitation
DX: Z01.812 Encounter for preprocedural laboratory examination (principal)

== ENCOUNTER → 2019-08-12 | Outpatient (CLI) | payer OTHER | LOC: M LRY 12:24 | PROVIDERS: ATTEND Physical Medicine & Rehabilitation | DX: Z53.9 Procedure and treatment not carried out, unspecified reason (principal) ==

== ENCOUNTER → 2020-04-19 | Outpatient (CLI) | payer OTHER | LOC: M LABSMTC 11:03 | PROVIDERS: ATTEND Anesthesiology | DX: Z03.818 Encounter for observation for suspected exposure to other biological agents ruled out (principal); Z11.59 Encounter for screening for other viral diseases ==

== ENCOUNTER → 2021-11-06 | Outpatient (CLI) | payer OTHER ==
[~2021-11-06] MED LIST changes: -DICY20TA PO; +DICY20TA3 PO
[2021-11-06 17:05] LABS: BLOOD UREA NITROGEN 17 MG/DL (7-18); CREATININE FOR GFR 0.66 MG/DL (0.55-1.30); GLOMERULAR FILTRATION RATE > 60.0 (>60)
== END ==
LOC: M WUC 14:36
PROVIDERS: ATTEND Nurse Practitioner Adult Health
DX: M54.50 Low back pain, unspecified (principal); G89.29 Other chronic pain; Z91.14 Patient's other noncompliance with medication regimen

== ENCOUNTER → 2022-09-24 | Outpatient (CLI) | payer OTHER | LOC: M WHC 09:15 | PROVIDERS: ATTEND Podiatrist | DX: I80.252 Phlebitis and thrombophlebitis of left calf muscular vein (principal) ==

== ENCOUNTER → 2022-10-16 | Outpatient (CLI) | payer OTHER ==
[2022-10-16 17:13] LABS: BLOOD UREA NITROGEN 15 MG/DL (9-23); CALCIUM LEVEL 9.3 MG/DL (8.5-10.1); CARBON DIOXIDE LEVEL 22 MMOL/L (20-31); CHLORIDE LEVEL 104 MMOL/L (98-107); CREATININE FOR GFR 0.68 MG/DL (0.55-1.30); GLOMERULAR FILTRATION RATE > 60.0 (>60); GLUCOSE, FASTING 87 MG/DL (60-100); POTASSIUM SERUM 4.4 MMOL/L (3.5-5.1); SODIUM LEVEL 140 MMOL/L (136-145)
[2022-10-16 17:15] LABS: BASO % 0.4 % (0.0-1.0); EOS # 0.1 10^3/uL (0.0-0.5); EOS % 1.3 % (0.0-3.0); HEMATOCRIT 37.9 % (36.0-47.0); HEMOGLOBIN 12.4 g/dl (12.0-15.5); LYMPH # 1.4 10^3/uL (1.5-5.0); LYMPH % 27.4 % (24.0-44.0); MEAN CORPUSCULAR HEMOGLOBIN 31.6 pg (27.0-33.0); MEAN CORPUSCULAR HGB CONC 32.7 g/dl (32.0-36.5); MEAN CORPUSCULAR VOLUME 96.4 fl (80.0-96.0); MONO # 0.4 10^3/uL (0.0-0.8); MONO % 8.4 % (2.0-8.0); NEUTROPHILS # 3.3 10^3/uL (1.5-8.5); NEUTROPHILS % 62.1 % (36.0-66.0); PLATELET COUNT, AUTOMATED 198 10^3/uL (150-450); RED BLOOD COUNT 3.93 10^6/uL (4.00-5.40); WHITE BLOOD COUNT 5.3 10^3/uL (4.0-10.0)
== END ==
LOC: M WUC 11:36
PROVIDERS: ATTEND Podiatrist
DX: M72.2 Plantar fascial fibromatosis (principal); M20.42 Other hammer toe(s) (acquired), left foot; M79.672 Pain in left foot

== ENCOUNTER → 2022-10-27 | Outpatient (CLI) | payer OTHER | LOC: M LABSMTC 09:14 | PROVIDERS: ATTEND Anesthesiology | DX: Z01.812 Encounter for preprocedural laboratory examination (principal); Z11.52 Encounter for screening for COVID-19 ==

== ENCOUNTER 2022-10-31 08:40 | Day surgery (SDC) | payer OTHER ==
[~2022-10-31] VITALS: Ht 177.8 cm; Wt 127.5 kg
[~2022-10-31 08:40] MED LIST changes: +GENTAMICIN SULF 80MG/2ML VIAL As Ordered ONE; +LIDOCAINE 2% MDV 20ML VIAL As Ordered ONE; +VANCOMYCIN HCL 1,000 MG, VIAL MATE ADAPTER 1 EACH in D5W 250 ML IV ONE
[2022-10-31] MEDS ORDERED: LR 1,000 ML IV SCH (09:15)
[2022-10-31] MEDS ORDERED: VANCOMYCIN HCL 750 MG, VIAL MATE ADAPTER 1 EACH in D5W 250 ML IV ONE ×6 (09:30)
[2022-10-31 10:00] LABS: HCG, SERUM QUALITATIVE NEGATIVE (NEGATIVE)
[2022-10-31] MEDS ORDERED: ONDANSETRON 4MG 2ML VIAL As Ordered ONE (11:04)
[2022-10-31] MEDS ORDERED: propofoL 200 MG/20 ML VIAL As Ordered ONE ×4 (11:04→12:04)
[2022-10-31] MEDS ORDERED: MIDAZOLAM INJ 2MG/2ML VIAL As Ordered ONE (11:04)
[2022-10-31] MEDS ORDERED: KETOROLAC 60MG 2ML VIAL As Ordered ONE (12:51)
[2022-10-31] MEDS ORDERED: BUPIVACAINE HCL 0.5% 30ML VIAL As Ordered ONE (13:05)
[2022-10-31] MEDS ORDERED: PERCOCET 5MG/325MG TAB PO STA (13:19)
[2022-10-31 14:40] VITALS: BP 125/72
== END 2022-10-31 14:44 | disposition home or self-care (01) ==
LOC: M SDC 08:40
PROVIDERS: ATTEND Podiatrist
DX: M72.2 Plantar fascial fibromatosis (principal); M20.42 Other hammer toe(s) (acquired), left foot; M79.605 Pain in left leg; I80.252 Phlebitis and thrombophlebitis of left calf muscular vein; N80.9 Endometriosis, unspecified; M54.9 Dorsalgia, unspecified; D64.9 Anemia, unspecified; Z88.0 Allergy status to penicillin
CPT/HCPCS: 28285; 29893; 36415; 73630; 76000; 84703; 88300; J2405

== ENCOUNTER → 2023-01-28 | Outpatient (CLI) | payer OTHER ==
[~2023-01-28] MED LIST changes: -GENTAMICIN SULF 80MG/2ML VIAL As Ordered ONE; -LIDOCAINE 2% MDV 20ML VIAL As Ordered ONE; -VANCOMYCIN HCL 1,000 MG, VIAL MATE ADAPTER 1 EACH in D5W 250 ML IV ONE
[2023-01-28 15:06] LABS: BASO % 0.5 % (0.0-1.0); EOS # 0.1 10^3/uL (0.0-0.5); EOS % 2.7 % (0.0-3.0); HEMATOCRIT 38.7 % (36.0-47.0); HEMOGLOBIN 12.7 g/dl (12.0-15.5); LYMPH # 1.3 10^3/uL (1.5-5.0); LYMPH % 30.3 % (24.0-44.0); MEAN CORPUSCULAR HEMOGLOBIN 31.4 pg (27.0-33.0); MEAN CORPUSCULAR HGB CONC 32.8 g/dl (32.0-36.5); MEAN CORPUSCULAR VOLUME 95.8 fl (80.0-96.0); MONO # 0.4 10^3/uL (0.0-0.8); MONO % 9.7 % (2.0-8.0); NEUTROPHILS # 2.3 10^3/uL (1.5-8.5); NEUTROPHILS % 56.6 % (36.0-66.0); PLATELET COUNT, AUTOMATED 221 10^3/uL (150-450); RED BLOOD COUNT 4.04 10^6/uL (4.00-5.40); WHITE BLOOD COUNT 4.1 10^3/uL (4.0-10.0)
[2023-01-28 15:28] LABS: FREE T4 0.84 NG/DL (0.89-1.76); THYROID STIMULATING HORMONE 2.147 uIU/ML (0.55-4.78)
[2023-01-28 15:31] LABS: TOTAL 25(OH) VITAMIN D 14.7 NG/ML (20.0-100.0)
[2023-01-28 15:32] LABS: ALBUMIN 3.7 G/DL (3.2-5.2); ALKALINE PHOSPHATASE 79 U/L (46-116); ALT/SGPT 38 U/L (7.0-40); AST/SGOT 27 U/L (<34); BILIRUBIN,TOTAL 0.5 MG/DL (0.3-1.2); BLOOD UREA NITROGEN 16 MG/DL (9-23); CALCIUM LEVEL 8.6 MG/DL (8.5-10.1); CARBON DIOXIDE LEVEL 26 MMOL/L (20-31); CHLORIDE LEVEL 107 MMOL/L (98-107); CHOLESTEROL LEVEL 190 MG/DL (<200); CHOLESTEROL RISK RATIO 3.72 (<5); CREATININE FOR GFR 0.67 MG/DL (0.55-1.30); GLOMERULAR FILTRATION RATE > 60.0 (>60); GLUCOSE, FASTING 99 MG/DL (60-100); LDL CHOLESTEROL 117.8 MG/DL (<100); POTASSIUM SERUM 4.1 MMOL/L (3.5-5.1); SODIUM LEVEL 140 MMOL/L (136-145); TOTAL PROTEIN 6.2 G/DL (5.7-8.2); TRIGLYCERIDES LEVEL 106 MG/DL (<150)
[2023-01-28 18:44] LABS: HEMOGLOBIN A1c 5.2 % (4.0-6.0)
== END ==
LOC: M WUC 09:06
PROVIDERS: ATTEND Physician Assistant
DX: F41.9 Anxiety disorder, unspecified (principal); E55.9 Vitamin D deficiency, unspecified; E66.01 Morbid (severe) obesity due to excess calories

== ENCOUNTER → 2023-06-25 | Outpatient (CLI) | payer OTHER ==
[2023-06-25 16:36] LABS: FREE T4 0.97 NG/DL (0.89-1.76); THYROID STIMULATING HORMONE 2.15 uIU/ML (0.55-4.78)
== END ==
LOC: M WUC 13:53
PROVIDERS: ATTEND Physician Assistant
DX: F41.9 Anxiety disorder, unspecified (principal)

== ENCOUNTER → 2023-08-25 | Outpatient (CLI) | payer OTHER ==
[2023-08-25 16:42] LABS: BASO % 0.3 % (0.0-1.0); EOS # 0.1 10^3/uL (0.0-0.5); EOS % 1.3 % (0.0-3.0); HEMATOCRIT 40.2 % (36.0-47.0); HEMOGLOBIN 13.5 g/dl (12.0-15.5); LYMPH # 3.1 10^3/uL (1.5-5.0); LYMPH % 29.5 % (24.0-44.0); MEAN CORPUSCULAR HEMOGLOBIN 31.7 pg (27.0-33.0); MEAN CORPUSCULAR HGB CONC 33.6 g/dl (32.0-36.5); MEAN CORPUSCULAR VOLUME 94.4 fl (80.0-96.0); MONO # 0.9 10^3/uL (0.0-0.8); MONO % 8.5 % (2.0-8.0); NEUTROPHILS # 6.4 10^3/uL (1.5-8.5); NEUTROPHILS % 60.2 % (36.0-66.0); PLATELET COUNT, AUTOMATED 281 10^3/uL (150-450); RED BLOOD COUNT 4.26 10^6/uL (4.00-5.40); WHITE BLOOD COUNT 10.6 10^3/uL (4.0-10.0)
[2023-08-25 16:48] LABS: ALBUMIN 4.1 G/DL (3.2-5.2); ALKALINE PHOSPHATASE 86 U/L (46-116); ALT/SGPT 59 U/L (7.0-40); AST/SGOT 27 U/L (<34); BILIRUBIN,TOTAL 0.4 MG/DL (0.3-1.2); BLOOD UREA NITROGEN 12 MG/DL (9-23); CALCIUM LEVEL 9.4 MG/DL (8.5-10.1); CARBON DIOXIDE LEVEL 26 MMOL/L (20-31); CHLORIDE LEVEL 102 MMOL/L (98-107); CREATININE FOR GFR 0.67 MG/DL (0.55-1.30); GLOMERULAR FILTRATION RATE > 60.0 (>60); GLUCOSE, FASTING 79 MG/DL (60-100); POTASSIUM SERUM 3.7 MMOL/L (3.5-5.1); SODIUM LEVEL 137 MMOL/L (136-145); TOTAL PROTEIN 6.9 G/DL (5.7-8.2)
== END ==
LOC: M WUC 12:50
PROVIDERS: ATTEND Physician Assistant
DX: R05.1 Acute cough (principal); R07.89 Other chest pain

== ENCOUNTER → 2023-10-29 | Outpatient (REF) | payer OTHER | LOC: M SFHCLERA 17:27 | PROVIDERS: ATTEND Physician Assistant | DX: R05.3 Chronic cough (principal) ==

== ENCOUNTER → 2025-01-10 | Outpatient (CLI) | payer OTHER ==
[~2025-01-10] MED LIST changes: +DOXY100C3 PO; +DOXY100T PO; +IBUP80TA PO; +MELO15TA28 PO; +ONDA-282 PO; -ONDA4TAB6 PO; +PANT40TA29 PO; +PHEN37.58 PO
[2025-01-10 13:46] LABS: BASO % 0.4 % (0.0-1.0); EOS # 0.1 10^3/uL (0.0-0.5); EOS % 2.7 % (0.0-3.0); HEMATOCRIT 40.4 % (36.0-47.0); HEMOGLOBIN 13.5 g/dl (12.0-15.5); LYMPH # 1.3 10^3/uL (1.5-5.0); LYMPH % 26.8 % (24.0-44.0); MEAN CORPUSCULAR HEMOGLOBIN 30.5 pg (27.0-33.0); MEAN CORPUSCULAR HGB CONC 33.4 g/dl (32.0-36.5); MEAN CORPUSCULAR VOLUME 91.2 fl (80.0-96.0); MONO # 0.5 10^3/uL (0.0-0.8); MONO % 9.4 % (2.0-8.0); NEUTROPHILS % 60.5 % (36.0-66.0); PLATELET COUNT, AUTOMATED 209 10^3/uL (150-450); RED BLOOD COUNT 4.43 10^6/uL (4.00-5.40); WHITE BLOOD COUNT 4.9 10^3/uL (4.0-10.0)
[2025-01-10 13:53] LABS: ALBUMIN 3.8 G/DL (3.2-5.2); ALKALINE PHOSPHATASE 93 U/L (35-104); ALT/SGPT 33 U/L (7.0-40); AST/SGOT 22 U/L (<34); BILIRUBIN,TOTAL 0.5 MG/DL (0.3-1.2); BLOOD UREA NITROGEN 12 MG/DL (9-23); CALCIUM LEVEL 9.2 MG/DL (8.5-10.1); CARBON DIOXIDE LEVEL 26 MMOL/L (20-31); CHLORIDE LEVEL 104 MMOL/L (98-107); CHOLESTEROL LEVEL 212 MG/DL (<200); CHOLESTEROL RISK RATIO 4.01 (<5); CREATININE FOR GFR 0.61 MG/DL (0.55-1.30); GLOMERULAR FILTRATION RATE > 60.0 (>60); GLUCOSE, FASTING 105 MG/DL (60-100); HDL CHOLESTEROL 52.8 MG/DL (>40); IRON (FE) 84 UG/DL (50-170); LDL CHOLESTEROL 129.8 MG/DL (<100); NON-HDL-C 159.2 MG/DL; POTASSIUM SERUM 4.3 MMOL/L (3.5-5.1); SODIUM LEVEL 138 MMOL/L (136-145); THYROID STIMULATING HORMONE 2.004 uIU/ML (0.55-4.78); TOTAL PROTEIN 6.7 G/DL (5.7-8.2); TRIGLYCERIDES LEVEL 147 MG/DL (<150)
[2025-01-10 13:54] LABS: TOTAL 25(OH) VITAMIN D 17.9 NG/ML (20.0-100.0)
[2025-01-10 13:55] LABS: FREE T4 1.09 NG/DL (0.89-1.76)
[2025-01-10 14:03] LABS: HEMOGLOBIN A1c 5.3 % (4.0-6.0)
== END ==
LOC: M WUC 09:02
DX: F41.9 Anxiety disorder, unspecified (principal); E55.9 Vitamin D deficiency, unspecified; E66.01 Morbid (severe) obesity due to excess calories; K21.9 Gastro-esophageal reflux disease without esophagitis

== ENCOUNTER → 2025-01-10 | Outpatient (CLI) | payer OTHER ==
[2025-01-10 13:46] LABS: BASO % 0.6 % (0.0-1.0); EOS # 0.1 10^3/uL (0.0-0.5); EOS % 2.8 % (0.0-3.0); HEMATOCRIT 39.8 % (36.0-47.0); HEMOGLOBIN 13.3 g/dl (12.0-15.5); LYMPH # 1.3 10^3/uL (1.5-5.0); LYMPH % 27.2 % (24.0-44.0); MEAN CORPUSCULAR HEMOGLOBIN 30.6 pg (27.0-33.0); MEAN CORPUSCULAR HGB CONC 33.4 g/dl (32.0-36.5); MEAN CORPUSCULAR VOLUME 91.7 fl (80.0-96.0); MONO # 0.4 10^3/uL (0.0-0.8); MONO % 8.9 % (2.0-8.0); NEUTROPHILS % 60.3 % (36.0-66.0); PLATELET COUNT, AUTOMATED 208 10^3/uL (150-450); RED BLOOD COUNT 4.34 10^6/uL (4.00-5.40); WHITE BLOOD COUNT 4.9 10^3/uL (4.0-10.0)
[2025-01-10 13:51] LABS: BLOOD UREA NITROGEN 12 MG/DL (9-23); CALCIUM LEVEL 9.1 MG/DL (8.5-10.1); CARBON DIOXIDE LEVEL 26 MMOL/L (20-31); CHLORIDE LEVEL 104 MMOL/L (98-107); CREATININE FOR GFR 0.63 MG/DL (0.55-1.30); GLOMERULAR FILTRATION RATE > 60.0 (>60); GLUCOSE, FASTING 103 MG/DL (60-100); POTASSIUM SERUM 4.4 MMOL/L (3.5-5.1); SODIUM LEVEL 140 MMOL/L (136-145)
== END ==
LOC: M WUC 09:05
PROVIDERS: ATTEND Podiatrist
DX: M72.2 Plantar fascial fibromatosis (principal); M20.41 Other hammer toe(s) (acquired), right foot; M79.671 Pain in right foot

== ENCOUNTER 2025-01-20 06:09 | Day surgery (SDC) | payer OTHER ==
[~2025-01-20] VITALS: Ht 175.3 cm; Wt 124.9 kg
[~2025-01-20 06:09] MED LIST changes: +CETI10CA13 PO; +VENTAER INH; +ceFAZolin SOD 2 GM IV ONCE IV ONE
[2025-01-20 06:47] LABS: HCG, SERUM QUALITATIVE NEGATIVE (NEGATIVE)
[2025-01-20] MEDS ORDERED: propofoL 200 MG/20 ML VIAL As Ordered ONE (07:05)
[2025-01-20] MEDS ORDERED: LIDOCAINE 2% 100MG/5ML SDV (FOR ANES.) As Ordered ONE (07:05)
[2025-01-20] MEDS ORDERED: MIDAZOLAM INJ 2MG/2ML VIAL As Ordered ONE (07:06)
[2025-01-20] MEDS ORDERED: fentaNYL 100 MCG/2 ML INJECTION As Ordered ONE (07:06)
[2025-01-20] MEDS: LR 1,000 ML IV SCH (07:11)
[2025-01-20] MEDS: ceFAZolin SOD 3 GM in DEXTROSE 5% (D5W) MINI-BAG PLU 1... IV ONE (07:38)
[2025-01-20] MEDS ORDERED: ACETAMINOPHEN 1000MG/100ML IV BAG As Ordered ONE (07:47)
[2025-01-20] MEDS ORDERED: KETAMINE HCL 200MG/20ML VIAL As Ordered ONE (08:21)
[2025-01-20] MEDS ORDERED: KETOROLAC 30 MG/ML 1ML VIAL As Ordered ONE (08:58)
[2025-01-20] MEDS: LIDOCAINE 2% MDV 20ML VIAL As Ordered ONE (09:04)
[2025-01-20] MEDS: GENTAMICIN SULF 80MG/2ML VIAL As Ordered ONE (09:04)
[2025-01-20] MEDS ORDERED: HYDROmorphone HCL 2MG/ML 1ML VIAL As Ordered ONE (09:19)
[2025-01-20] MEDS ORDERED: MORPHINE 2 MG/ML 1ML VIAL IV PRN (09:40)
[2025-01-20] MEDS ORDERED: fentaNYL 100 MCG/2 ML INJECTION IV PRN (09:40)
[2025-01-20] MEDS ORDERED: LR 1,000 ML IV SCH (09:40)
[2025-01-20] MEDS ORDERED: oxyCODONE 5MG TAB PO PRN (09:40)
[2025-01-20] MEDS: ONDANSETRON 4MG 2ML VIAL IV PRN (09:45)
[2025-01-20] MEDS: METOCLOPRAMIDE INJ 10MG/2ML VIAL IV ONE (10:50)
[2025-01-20] MEDS: PROMETHAZINE 25 MG TAB PO ONE (13:25)
[2025-01-20] MEDS: PROMETHAZINE 25MG/ML 1ML VIAL IV ONE (14:37)
[2025-01-20 15:02] VITALS: BP 123/76; TEMP 96.8; O2SAT 100
== END 2025-01-20 15:08 | disposition home or self-care (01) ==
LOC: M SDC 06:09
PROVIDERS: ATTEND Podiatrist
DX: M72.2 Plantar fascial fibromatosis (principal); M20.41 Other hammer toe(s) (acquired), right foot; Z68.41 Body mass index [BMI] 40.0-44.9, adult; Z88.0 Allergy status to penicillin; Z79.899 Other long term (current) drug therapy
CPT/HCPCS: 28270; 28285; 29893; 36415; 73630; 76000; 84703; 88300; J0131; J0665; J0690; J1100; J1171; J1580; J1885; J2250; J2405; J2550; J2765; J3010

== ENCOUNTER → 2025-02-16 | Outpatient (CLI) | payer OTHER ==
[~2025-02-16] MED LIST changes: -ceFAZolin SOD 2 GM IV ONCE IV ONE
[2025-02-16 15:04] LABS: URIC ACID 5.8 MG/DL (3.1-7.8)
[2025-02-16 15:07] LABS: C REACTIVE PROTEIN QUANTITATIV < 0.50 MG/DL (<1.0); RHEUMATOID FACTOR QUANT < 3.5 IU/ML (<14)
== END ==
LOC: M WUC 12:20
DX: M25.50 Pain in unspecified joint (principal)